=== PATIENT | male | born 1990 | race Caucasian/White ===

== ENCOUNTER 2020-08-01 04:11 | Emergency (ER) | payer OTHER ==
[~2020-08-01] VITALS: Ht 180.3 cm; Wt 68.0 kg
[2020-08-01 04:15] VITALS: Ht 180.3 cm; Wt 68.0 kg
[2020-08-01 04:46] VITALS: BP 137/88
== END 2020-08-01 04:47 ==
LOC: ED 04:11
DX: Z02.89 Encounter for other administrative examinations (principal)